=== PATIENT | female | born 1995 | race Hispanic/Latino ===

== ENCOUNTER 2021-11-23 09:18 | Outpatient (CLI) | payer BC | END 2021-11-23 09:19 | disposition home or self-care (01) | LOC: BICRAD 09:18 | PROVIDERS: ATTEND Family Medicine | DX: S42.001A Fracture of unspecified part of right clavicle, initial encounter for closed fracture (principal); M25.531 Pain in right wrist; M25.551 Pain in right hip ==

== ENCOUNTER 2021-11-29 16:17 | Outpatient (CLI) | payer BC | END 2021-11-29 16:18 | disposition home or self-care (01) | LOC: ULT 16:17 | PROVIDERS: ATTEND Family Medicine | DX: R22.31 Localized swelling, mass and lump, right upper limb (principal) | CPT/HCPCS: 76999 ==

== ENCOUNTER 2021-12-02 15:45 | Outpatient (CLI) | payer BC ==
[2021-12-02 16:41] LABS: #Eosinphils 0.1 10x3/uL (0.0-0.5); #Monocytes 0.7 10x3/uL (0.0-1.1); #Neutrophils 7.7 10x3/uL (1.5-8.4); %Basophils 0.3 % (0.0-2.0); %Eosinophils 0.4 % (0.0-6.0); %Lymphocytes 26.4 % (18.0-47.0); %Monocytes 5.7 % (0.0-10.0); %Neutrophils 66.9 % (40.0-75.0); Hemoglobin 13.9 g/dL (12.0-15.5); Mean Corpuscular HGB CONC 31.9 g/dL (32.0-36.0); Mean Corpuscular Hemoglobin 30.5 pg (27.0-33.0); Mean Corpuscular Volume 95.8 fl (81.6-98.3); Mean Platelet Volume 10.5 fl (7.4-10.4); Platelet Count 291 10x3/uL (150-450); RBC Distribution Width 13.3 % (11.5-14.5); Red Blood Cell (RBC) Count 4.55 10x6/uL (3.90-5.03); White Blood Cell (WBC) Count 11.5 10x3/uL (3.5-10.5)
[2021-12-02 17:19] LABS: BHCG - Serum Negative (NEGATIVE); Pregs Control Background? CLEAR/WHITE (CLR/WHITE); Pregs Control Bar Appear? YES (CONTROL BAR)
[2021-12-02 17:23] LABS: Anion Gap 15 mmol/L (10-20); BUN (Urea Nitrogen) 14 mg/dL (7.0-18.7); Calc. Creatinine Clearance 0 mL/min (70-130); Calcium 9.2 mg/dL (7.8-10.44); Carbon Dioxide 26 mmol/L (22-29); Chloride 103 mmol/L (98-107); Glucose 85 mg/dL (70-105); Potassium 4.2 mmol/L (3.5-5.1); Sodium 140 mmol/L (136-145)
[2021-12-03 19:32] LABS: SARS-CoV-2 PCR by NAA Not Detected (NotDetected)
== END 2021-12-02 15:46 | disposition home or self-care (01) ==
LOC: LABBT 15:45
PROVIDERS: ATTEND Specialist
DX: Z01.812 Encounter for preprocedural laboratory examination (principal); D17.21 Benign lipomatous neoplasm of skin and subcutaneous tissue of right arm; Z20.822 Contact with and (suspected) exposure to COVID-19
CPT/HCPCS: 80048; 84703; 85025; U0003; U0005

== ENCOUNTER 2021-12-07 08:13 | Day surgery (SDC) | payer BC ==
[2021-12-02 12:56] VITALS: BMI 34.3
[2021-12-07] MEDS ORDERED: Ketorolac Tromethamine 30 MG/ML VIAL ONE (08:42)
[2021-12-07] MEDS ORDERED: Acetaminophen 500 MG TAB ONE (08:42)
[2021-12-07] MEDS ORDERED: Promethazine HCl 25 MG/ML VIAL ONE (10:22)
[2021-12-07] MEDS ORDERED: Fentanyl 250 MCG/5 ML VIAL ONE (10:22)
[2021-12-07] MEDS ORDERED: ceFAZolin 2 GM/Dextrose 50 ML IVPB ONE (10:29)
[2021-12-07] MEDS ORDERED: PHENYLEPHRINE-NS 100 MCG/ML 10 ML SYRINGE ONE (10:36)
[2021-12-07] MEDS ORDERED: Dexamethasone 20 MG/5 ML VIAL ONE (10:36)
[2021-12-07] MEDS ORDERED: Ondansetron PF 4 MG/2 ML Vial ONE (10:36)
[2021-12-07] MEDS ORDERED: Lidocaine 1% PF 5 ML VIAL ONE (10:36)
[2021-12-07] MEDS ORDERED: Succinylcholine 200 MG/10 ml SYRINGE FS ONE (10:36)
[2021-12-07] MEDS ORDERED: PROPOFOL 200 MG/20 ML VIAL ONE (10:36)
[2021-12-07] MEDS ORDERED: Xylocaine 1% w/ Epi 1:100K 10 ML VIAL ONE (10:53)
[2021-12-07] MEDS ORDERED: Bupivacaine PF 0.5% 30 ML VIAL ONE (10:53)
[2021-12-07] MEDS ORDERED: Fentanyl 100 MCG/2 ML VIAL ONE (12:32)
[2021-12-07] MEDS ORDERED: HYDROcodone/Acetaminophen 5/325 mg Tablet ONE (14:03)
== END 2021-12-07 15:30 | disposition home or self-care (01) ==
LOC: SDC 08:13
PROVIDERS: ATTEND Specialist
PROC: 0JBD0ZZ Excision of Right Upper Arm Subcutaneous Tissue and Fascia, Open Approach (ICD-10-PCS; principal; 2021-12-07)
DX: D17.21 Benign lipomatous neoplasm of skin and subcutaneous tissue of right arm (principal); Z87.891 Personal history of nicotine dependence; Z79.899 Other long term (current) drug therapy; Z91.018 Allergy to other foods
CPT/HCPCS: 88304; J0690; J1100; J1885; J2405; J2550; J2704; J3010; S0020